=== PATIENT | male | born 1945 | race Caucasian/White ===

== ENCOUNTER → 2016-12-24 | Outpatient (CLI) | payer OTHER ==
[~2016-12-24] MED LIST: ADALATCC PO; ASPIRIN PO; FISH OIL 1,0001 CAP PO; LISINOPRIL PO; NORVASC PO; ZOCOR PO; [UNRECOGNIZED DRUG - OTHER] PO
--- NOTE | ~2016-12-24 | CT2 ---
[facility] A Service of [facility] RADIOLOGY TEXT RESULTS PATIENT: BHUMIKA REES LOCATION: [facility] : 49 UNIT #: [id number] AGE: [address]: Jj Betts MD SEX: M ORDER DR: [id number] [place] [id number] O MR#: [id number] #: [id number] NAME: BHUMIKA REES : 1945 SEX: M STUDY DATE/TIME: 12/24/2016 11:44 UNIT: SCT ROOM: STUDY DESCRIPTION: CT Abd and Pelv W Cont Attending Physician: Jj Betts M.D. Referring Physician: jJ Betts M.D. Ordering Physician: Jj Betts M.D. Primary Care Physician: Jj Betts M.D. MEDICAL IMAGING REPORT This report is preliminary unless electronic signature is present. EXAM CT of the abdomen and pelvis with contrast INDICATIONS Constipation for [address] images were obtained from the dome of the diaphragm through the symphysis pubis following the administration of oral and intravenous contrast material. This CT exam was performed with one or more of the following radiation dose reduction techniques: Automatic exposure control, adjustment of mA and/or kV according to patient size, and iterative reconstruction. FINDINGS Images through the lung bases are clear. There is a small hiatal hernia. A few tiny low-attenuation lesions are seen scattered throughout the liver which are too small to accurately characterize, which certainly could reflect benign lesions such as cysts. Spleen is within normal limits, as is the proximal small bowel. Adrenal glands appear normal. Gallbladder appears normal. 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 Adrenal glands appear unremarkable. Multiple low-attenuation lesions are seen within the renal collecting systems bilaterally which I suspect reflect parapelvic cysts. No definite hydronephrosis is identified. There is a replaced right hepatic artery to the superior mesenteric artery, which is a normal anatomic variant. No free fluid or adenopathy is seen within the abdomen. There is no evidence of mechanical bowel obstruction. Urinary bladder and prostate gland appear normal. There is some colonic diverticulosis without any convincing evidence of STS. [facility] A Service of [facility] RADIOLOGY TEXT RESULTS PATIENT: BHUMIKA REES LOCATION: [facility] : 49 UNIT #: [id number] AGE: [address]: Jj Betts MD SEX: M ORDER DR: diverticulitis. No free fluid or adenopathy is seen within the pelvis. No aggressive osseous abnormalities are seen. IMPRESSION 1. No acute intraabdominal or intrapelvic process is seen to account for the patient's symptomatology. 2. 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 Further characterization with dedicated CT angiography is recommended. 3. Small hiatal hernia. 4. Suspected bilateral parapelvic cysts. 5. Colonic diverticulosis without any evidence of diverticulitis. Please see the body of the report for any other additional incidental findings. Dictated by... Sheyla Olson M.D. THIS IS AN ELECTRONICALLY VERIFIED REPORT Sheyla Olson M.D. at 12/26/2016 4:56 PM AFF/psc TD: 12/24/2016 21:31 JOB #: [id number] MEDICAL IMAGING REPORT Page 1 of 1
[2016-12-24 10:30] LABS: POC - CREATININE 0.94 mg/dL (0.64-1.27); POC - GFR >60.0 mL/min (>60)
== END | disposition home or self-care (01) ==
LOC: SCT 09:45
PROVIDERS: Family Medicine
DX: K59.00 Constipation, unspecified (principal); R14.0 Abdominal distension (gaseous); K44.9 Diaphragmatic hernia without obstruction or gangrene; K57.30 Diverticulosis of large intestine without perforation or abscess without bleeding; K76.9 Liver disease, unspecified; Z88.8 Allergy status to other drugs, medicaments and biological substances
CPT/HCPCS: 74177; 82565; Q9967